=== PATIENT | male | born 1975 | race Caucasian/White ===

== ENCOUNTER → 2016-07-19 | Outpatient (CLI) | payer BC | LOC: LAB.O 10:43 | PROVIDERS: ATTEND Internal Medicine | DX: E83.119 Hemochromatosis, unspecified (principal) ==

== ENCOUNTER → 2016-08-02 | Outpatient (CLI) | payer BC | LOC: LAB.O 12:43 | PROVIDERS: ATTEND Internal Medicine | DX: E83.119 Hemochromatosis, unspecified (principal) ==

== ENCOUNTER → 2016-08-21 | Outpatient (CLI) | payer BC | END | disposition home or self-care (01) | LOC: LAB.O 12:45 | PROVIDERS: ATTEND Internal Medicine | DX: E83.119 Hemochromatosis, unspecified (principal) ==

== ENCOUNTER → 2016-09-10 | Outpatient (CLI) | payer BC | END | disposition home or self-care (01) | LOC: LAB.O 12:42 | PROVIDERS: ATTEND Internal Medicine | DX: E83.119 Hemochromatosis, unspecified (principal) ==

== ENCOUNTER → 2016-10-03 | Outpatient (CLI) | payer BC | END | disposition home or self-care (01) | LOC: LAB.O 11:52 | PROVIDERS: ATTEND Family Medicine | DX: E83.119 Hemochromatosis, unspecified (principal) ==

== ENCOUNTER → 2016-11-02 | Outpatient (CLI) | payer BC | END | disposition home or self-care (01) | LOC: LAB.O 13:57 | PROVIDERS: ATTEND Internal Medicine | DX: E83.119 Hemochromatosis, unspecified (principal) ==

== ENCOUNTER → 2016-11-19 | Outpatient (CLI) | payer BC | END | disposition home or self-care (01) | LOC: LAB.O 10:14 | PROVIDERS: ATTEND Family Medicine | DX: E83.119 Hemochromatosis, unspecified (principal) ==

== ENCOUNTER → 2017-01-09 | Outpatient (CLI) | payer BC | END | disposition home or self-care (01) | LOC: LAB.O 12:59 | PROVIDERS: ATTEND Internal Medicine | DX: E83.119 Hemochromatosis, unspecified (principal) ==

== ENCOUNTER → 2017-02-19 | Outpatient (CLI) | payer BC | END | disposition home or self-care (01) | LOC: LAB.O 08:16 | PROVIDERS: ATTEND Internal Medicine | DX: E83.119 Hemochromatosis, unspecified (principal) ==

== ENCOUNTER → 2018-11-12 | Outpatient (CLI) | payer BC | LOC: GMAE 10:38 | PROVIDERS: ATTEND Family Medicine | DX: Z00.01 Encounter for general adult medical examination with abnormal findings (principal) ==

== ENCOUNTER → 2019-02-24 | Outpatient (CLI) | payer BC | LOC: GMAE 10:52 | PROVIDERS: ATTEND Family Medicine | DX: E83.110 Hereditary hemochromatosis (principal); E78.1 Pure hyperglyceridemia; E11.9 Type 2 diabetes mellitus without complications ==

== ENCOUNTER → 2019-08-31 | Outpatient (CLI) | payer BC | LOC: GMAE 10:35 | PROVIDERS: ATTEND Family Medicine | DX: Z00.00 Encounter for general adult medical examination without abnormal findings (principal) ==